=== PATIENT | female | born 1945 | race Caucasian/White ===

== ENCOUNTER → 2024-05-22 12:39 | Outpatient (REF) | payer OTHER, SELFPAY | LOC: WDC 12:39 | PROVIDERS: ATTENDING PHYSICIAN Internal Medicine Hematology & Oncology; FAMILY PHYSICIAN Family Medicine | DX: Z12.31 Encounter for screening mammogram for malignant neoplasm of breast (principal) | CPT/HCPCS: 77063; 77067 ==

== ENCOUNTER → 2024-05-22 13:24 | Outpatient (REF) | payer OTHER, SELFPAY | LOC: RAD 13:24 | PROVIDERS: ATTENDING PHYSICIAN Family Medicine; REFERRING PHYSICIAN Chiropractor | DX: M54.50 Low back pain, unspecified (principal) | CPT/HCPCS: 72110 ==

== ENCOUNTER → 2024-06-23 10:04 | Outpatient (REF) | payer OTHER, SELFPAY | LOC: RAD 10:04 | PROVIDERS: ATTENDING PHYSICIAN Internal Medicine Hematology & Oncology; FAMILY PHYSICIAN Family Medicine | DX: C50.911 Malignant neoplasm of unspecified site of right female breast (principal) | CPT/HCPCS: 78306; A9503 ==

== ENCOUNTER → 2024-12-29 09:28 | Outpatient (REF) | payer OTHER, SELFPAY ==
[2024-12-29 10:33] LABS: % Basophils 1.4 % (0-2); % Eosinophils 2.3 % (0-6); % Immature Granulocytes 0.3 % (0-0.5); % Monocytes 7.2 % (1.7-9.3); % Neutrophils 57.8 % (42.2-75.2); Absolute Basophils 0.1 10^3/uL (0-0.2); Absolute Eosinophils 0.2 10^3/uL (0-0.7); Absolute Monocytes 0.5 10^3/uL (0.1-0.6); Absolute Neutrophils 3.7 10^3/uL (1.4-6.5); Hematocrit 46.3 % (37.0-47.0); Hemoglobin 15.9 g/dL (12.0-16.0); Mean Corp Hgb Conc. 34.3 g/dL (33.0-37.0); Mean Corpuscular Hgb 32.6 pg (27.0-31.0); Mean Corpuscular Volume 94.9 fL (81.0-99.0); Mean Platelet Volume 11.5 fL (7.4-10.4); Nucleated Red Blood Cells % 0 %; Platelet Count 195 10^3/uL (130-400); Red Blood Cell Count 4.88 10^6/uL (4.20-5.40); Red Cell Dist. Width 12.3 % (11.5-14.5); White Blood Cell Count 6.4 10^3/uL (4.8-10.8)
[2024-12-29 10:52] LABS: ALT (SGPT) 24 U/L (0-35); AST (SGOT) 29 U/L (14-36); Albumin 4.8 g/dl (3.5-5.0); Alkaline Phosphatase 79 U/L (38-126); Blood Urea Nitrogen 16 mg/dl (7-17); Calcium 9.9 mg/dl (8.4-10.2); Carbon Dioxide 29 mmol/L (22-30); Chloride 107 mmol/L (98-107); Direct Bilirubin 0.3 mg/dl (0.0-0.4); Glucose 78 mg/dl (70-99); Potassium 4.8 mmol/L (3.5-5.1); Sodium 141 mmol/L (135-145); eGFR > 60.00
[2024-12-30 22:38] LABS: CA 27-29 30.3 U/mL (<=39.0)
== END ==
LOC: RAD 09:28
PROVIDERS: ATTENDING PHYSICIAN Internal Medicine Hematology & Oncology; FAMILY PHYSICIAN Family Medicine
DX: C50.911 Malignant neoplasm of unspecified site of right female breast (principal)
CPT/HCPCS: 36415; 78306; 80053; 82248; 85025; 86300; A9503

== ENCOUNTER → 2025-06-16 10:51 | Outpatient (REF) | payer OTHER, SELFPAY | LOC: WDC 10:51 | PROVIDERS: ATTENDING PHYSICIAN Internal Medicine Hematology & Oncology; FAMILY PHYSICIAN Family Medicine | DX: Z12.31 Encounter for screening mammogram for malignant neoplasm of breast (principal); Z85.3 Personal history of malignant neoplasm of breast; C50.911 Malignant neoplasm of unspecified site of right female breast | CPT/HCPCS: 77063; 77067 ==

== ENCOUNTER → 2025-08-16 12:13 | Outpatient (REF) | payer OTHER, SELFPAY | LOC: RAD 12:13 | PROVIDERS: ATTENDING PHYSICIAN Family Medicine | DX: Z91.81 History of falling (principal); M54.50 Low back pain, unspecified; M25.561 Pain in right knee | CPT/HCPCS: 72110; 73564 ==